=== PATIENT | male | born 1965 | race Caucasian/White ===

== ENCOUNTER 2019-09-24 19:36 | Observation (INO) | payer SELFPAY ==
[~2019-09-24] VITALS: Ht 175.3 cm; Wt 94.5 kg
--- NOTE | 2019-09-24 19:39 | NUR ---
Ambulated to room 12 with steady gait.
[2019-09-24] MEDS ORDERED: ZESTRIL10 M1 PO (19:50)
[2019-09-24 20:21] LABS: ALBUMIN 3.9 g/dL (3.2-5.0); ALKALINE PHOSPHATASE 82 u/l (38-126); ANION GAP 10 (6-22 (CALC)); BILIRUBIN, TOTAL 0.4 mg/dL (0.0-1.4); BUN 12 mg/dL (9-20); BUN/CREATININE RATIO 13 (12-20 (CALC)); CARBON DIOXIDE 29 mmol/l (22-30); CHLORIDE 101 mmol/l (95-108); GFR > 60 ML/MIN (>=60 (CALC)); GFR FOR AFR.AMER. > 60 ML/MIN (>=60 (CALC)); POTASSIUM 3.6 mmol/l (3.5-5.1); SGOT/AST 31 u/l (17-59); SODIUM 137 mmol/l (137-146); TOTAL PROTEIN 6.9 g/dL (6.3-8.2)
[2019-09-24 20:26] LABS: HEMATOCRIT 42.5 % (39.0-50.0); HEMOGLOBIN 14.1 g/dl (14.0-18.0); IMMATURE GRANULOCYTES 0.3 % (0.0-5.0); MEAN CELL VOLUME 82.4 fL CALC (80.0-100.0); MEAN CORPUSCULAR HGB 27.3 pG CALC (26.0-32.0); MEAN CORPUSCULAR HGB CONC 33.2 g/dL CAL (32.0-36.0); NEUT# 4.85 thou/uL (1.82-7.42); RED BLOOD COUNT 5.16 mill/uL (4.70-6.10); RED CELL DISTRI WIDTH 13.8 % (11.5-15.5)
[2019-09-24] MEDS ORDERED: LISINOPRIL40 MG PO (20:33)
--- NOTE | 2019-09-24 21:30 | NUR ---
PT RESTING. PWD. RESP EASY
--- NOTE | 2019-09-24 22:33 | NUR ---
PT SLEEPING. VSS. FATHER AT BEDSIDE
[2019-09-24 23:31] LABS: URINE BILIRUBIN - DIPSTICK NEGATIVE (NEGATIVE); URINE BLOOD DIPSTICK NEGATIVE (NEGATIVE); URINE COLOR YELLOW; URINE GLUCOSE - DIPSTICK NEGATIVE (NEGATIVE); URINE KETONE NEGATIVE (NEGATIVE); URINE LEUK ESTERASE NEGATIVE (NEGATIVE); URINE NITRITE - DIPSTICK NEGATIVE (Negative); URINE PROTEIN - DIPSTICK NEGATIVE (NEG-TRACE); URINE SPECIFIC GRAVITY 1.025
[2019-09-24 23:36] LABS: BARBITURATES NEGATIVE (NEGATIVE); COCAINE NEGATIVE (NEGATIVE); METHADONE NEGATIVE (NEGATIVE); OXCYCODONE NEGATIVE (NEGATIVE); TETRAHYDROCANNABIONOL NEGATIVE (NEGATIVE); TRICYLIC ANTIDEPRESSANTS NEGATIVE (NEGATIVE)
--- NOTE | 2019-09-24 23:43 | NUR ---
PT BEING ADMITTED TO HOSPITAL. VISITOR TO BEDSIDE.
[2019-09-25 00:10] VITALS: BP 158/82
--- NOTE | 2019-09-25 00:10 | NUR ---
PT ARRIVED TO THE FLOOR VIA WHEEL CHAIR ACCOMPANIED BY ED STAFF. PT ALERT AND ORIETNED, PT AMBULATED FROM WHEEL CHAIR TO THE BED. RESPIRATIONS EVEN AND UNLABORED ON RA. ASSESSMENT COMPLETED AND VITAL SIGNS OBTAINED. PT DENIES ANY PAIN OR DISCOMFORT AT THIS TIME. PT ORIENTED TO ROOM AND CALL JUDGE SYSTEM. SAFETY PRECAUTIONS IN PLACE, WILL CONTINUE TO MONITOR.
--- NOTE | 2019-09-25 00:18 | NUR ---
REPORT TO AGAPITO BELCHER.
--- NOTE | 2019-09-25 00:22 | NUR ---
TO FLOOR VIA W/C WITH POCKET MONITOR. NO C/O. A/O JEFERSON. ELVER.
[2019-09-25 03:39] VITALS: BP 130/78
--- NOTE | 2019-09-25 04:00 | NUR ---
PT RESTING IN BED. TELE IN PLACE. NO S/S OF DISTRESS AT THIS TIME. SAFETY PRECAUTIONSIN PLACE. WILL CONTINUE TO MONITOR.
[2019-09-25 04:08] LABS: HEMATOCRIT 39.5 % (39.0-50.0); HEMOGLOBIN 12.9 g/dl (14.0-18.0); IMMATURE GRANULOCYTES 0.2 % (0.0-5.0); MEAN CELL VOLUME 84.2 fL CALC (80.0-100.0); MEAN CORPUSCULAR HGB 27.5 pG CALC (26.0-32.0); MEAN CORPUSCULAR HGB CONC 32.7 g/dL CAL (32.0-36.0); NEUT# 3.21 thou/uL (1.82-7.42); RED BLOOD COUNT 4.69 mill/uL (4.70-6.10); RED CELL DISTRI WIDTH 13.9 % (11.5-15.5)
[2019-09-25 04:45] LABS: ANION GAP 9 (6-22 (CALC)); BUN 12 mg/dL (9-20); BUN/CREATININE RATIO 13 (12-20 (CALC)); CALCULATED LDLCHOLESTEROL 62 mg/dL (62-129 (CALC)); CARBON DIOXIDE 29 mmol/l (22-30); CHLORIDE 103 mmol/l (95-108); CHOLESTEROL HDL RATIO 3.3 (<4.4 (CALC)); CREATININE 0.9 mg/dL (0.7-1.3); GFR > 60 ML/MIN (>=60 (CALC)); GFR FOR AFR.AMER. > 60 ML/MIN (>=60 (CALC)); HDL CHOLESTEROL 41 mg/dL (>=40); POTASSIUM 3.6 mmol/l (3.5-5.1); SODIUM 137 mmol/l (137-146); TOTAL CHOLESTEROL 135 mg/dl (0-199); TOTAL TRIGLYCERIDES 162 mg/dl (30-149); VLDL CHOLESTROL 32 mg/dl (8-62 (CALC))
[2019-09-25 07:50] VITALS: BP 150/96
--- NOTE | 2019-09-25 07:50 | NUR ---
ASSESSMENT IS COMPLTED: IV SITE IS FREE FROM REDNESS OR EDEMA. HR IS REG,PULSES ARE STRONG X4, ABD IS SOFT WITH ACTIVE BS. BREATH SOUNDS ARE CLEAR BILATERALLY. TELE MONITOR IN PLACE. CONTINUE TO OBSERVE AND MONITOR.
[2019-09-25] MEDS ORDERED: AMLODIPINE BESYL5 MG PO (08:44)
[2019-09-25] MEDS ORDERED: LISINOPRIL20 MG PO (09:50)
[2019-09-25 11:00] VITALS: BP 132/79
--- NOTE | 2019-09-25 12:00 | NUR ---
PT IS RELAXING IN BED WITH NO DISTRESS NOTED. IV SITE IS FREE FROM REDNESS OR EDEMA.
--- NOTE | 2019-09-25 13:00 | NUR ---
IV SITE DISCONTINUED CATHETER INTACT. NO REDNESS OR EDEMA. DISCHARGE INSTRUCTIONS GIVEN AND VERBALIZED UNDERSTANDING. PT AMBULATED OFF THE UNIT., Discharge instructions given. Patient verbalizes understanding of same. Discharged in stable condition via Ambulatory to Home with family. All belongings sent with pt.
--- NOTE | 2019-09-25 13:20 | NUR ---
Patient screened for therapy, he is not appropriate for PT at this time
== END 2019-09-25 12:34 | disposition home or self-care (01) | DRG 305 ==
LOC: ED 19:36 → ED-I 23:25 → ED 23:51 → MS2 23:52
PROVIDERS: ADMIT Internal Medicine; ATTEND Internal Medicine
DX: I16.0 Hypertensive urgency (principal); I10 Essential (primary) hypertension; F15.10 Other stimulant abuse, uncomplicated; T46.4X6A Underdosing of angiotensin-converting-enzyme inhibitors, initial encounter; Z91.128 Patient's intentional underdosing of medication regimen for other reason; Z20.828 Contact with and (suspected) exposure to other viral communicable diseases
CPT/HCPCS: G0378; J1650